=== PATIENT | male | born 1985 | race Caucasian/White ===

== ENCOUNTER 2021-09-12 21:18 | Emergency (ER) | payer MEDICAID, SELFPAY ==
[2021-09-12 21:22] VITALS: BP 140/89; PULSE 87; RESP 18; TEMP 36.9; O2SAT 99
--- NOTE | 2021-09-12 21:22 | ED.GENADULT ---
HPI - General Adult General Chief complaint: Unspecified Stated complaint: heat exhaustion History of Present Illness HPI narrative: 36-year-old male presents the emergency room for evaluation of heat exhaustion . Patient states that he has been outside all day as well as yesterday and is feeling fatigued. Patient denies seizure, altered consciousness, any delirium. Denies any confusion. Denies extreme weakness, any coordination problems lightheadedness, profuse sweating, headache, abdominal pain, vomiting or diarrhea, or any muscle cramps. Denies fever. Patient also states that he is presently homeless. Related Data Home Medications Medication Instructions Recorded Confirmed No Home Medications 09/12/21 09/12/21 Allergies Allergy/AdvReac Type Severity Reaction Status Date / Time No Known Allergies Allergy Verified 09/12/21 21:27 Review of Systems Review of Systems: CONSTITUTIONAL: Denies fever, chills, or sweats. EYES: Denies visual changes, redness, or discharge. ENT: Denies rhinorrhea, congestion, sore throat, or otalgia. CARDIOVASCULAR: Denies chest pain, palpitations, or edema. RESPIRATORY: Denies cough or dyspnea. GASTROINTESTINAL: Reports nausea GENITOURINARY: Denies dysuria or hematuria. SKIN: Denies rash or itching. MUSCULOSKELETAL: Denies back pain, joint pain, or myalgia. NEUROLOGIC: Reports headache and weakness PSYCHIATRIC: Denies anxiety or depression. Exam Narrative: GENERAL: Well-appearing, well-nourished, and in no acute distress. HEAD: Normocephalic, atraumatic. EYES: PERRLA and EOMI. ENT: Nares clear, no rhinorrhea or epistaxis. Mucous membranes moist. Oropharynx without tonsillar hypertrophy exudate or other lesions. Bilateral TMs pearly mota nonbulging NECK: Supple. No adenopathy or masses. CHEST: Clear to auscultation. No respiratory distress. No wheezes rales or rhonchi HEART: Regular rate and rhythm. No murmur heard. Normal peripheral pulses. ABDOMEN: Soft, nontender, nondistended, normal active bowel sounds. EXTREMITIES: Normal range of motion. No edema. SKIN: Warm, dry, no rash. NEURO: No focal deficits. Alert and oriented x3. PSYCH: Normal mood and affect. Medical Decision Making MDM Narrative Medical decision making narrative: 36-year-old male presented to the emergency room complaints of nausea and suspicion over heat exhaustion. No signs of DKA in his labs. CMP is normal electrolytes and no signs of dehydration causing prerenal RIVAS. CK slightly elevated, likely due to his being exposed to the outside for a lengthy period of time. CBC was unremarkable. Patient denies any chest pain, unremarkable EKG so there is low suspicion for acute coronary syndrome. Based on history and exam, work-up there is a low suspicion for pancreatitis, appendicitis, or any biliary pathology. Patient was given IV fluids and IV Zofran. Patient tolerated p.o. here. Patient will be discharged home. Lab Data Lab results reviewed: Yes I reviewed the patient's lab results. ECG Data EKG #1: ECG completion date: 09/12/21 ECG completion time: 21:42 EKG Interpretation: normal rate, sinus rhythm, no ectopy, normal QRS and normal QT Discharge Plan Discharge Clinical Impression: Heat exhaustion Patient Disposition: Home, Self-Care Condition: Stable Instructions: Antibiotic Form Additional Instructions: Maintain adequate hydration. Attempted staying well shaded areas. Return to emergency room for worsening condition. Prescriptions: No Action No Home Medications Follow-up/Referrals: PHYSICIAN,SHOE HANDLER [Primary Care Provider] - Time of Disposition: 23:02
--- NOTE | 2021-09-12 21:35 | ECG_ITS ---
Measurements Intervals [place] Rate: 85 P: 57 AL: 142 QRS: 63 QRSD: 100 T: 40 QT: 358 QTc: 426 Interpretive Statements SINUS RHYTHM ST-ELEVATION, LIKELY EARLY REPOLARIZATION VERSUS PERICARDITIS ABNORMAL ECG NO PREVIOUS ECG AVAILABLE FOR COMPARISON Electronically Signed On 09-13-2021 11:04:06 CDT by Alexandre Meléndez M.D.
[2021-09-12 21:50] LABS: Basophils Percent Auto 0.5 % (0.2-1.2); Eosinophils Absolute Auto 0.1 K/mm3 (0-0.3); Eosinophils Percent Auto 0.7 % (0-4.4); Hematocrit 41.4 % (42.0-52.0); Hemoglobin 13.7 g/dL (14.0-18.0); Immature Granulocyte Absolute 0.03 K/mm3 (0.00-0.031); Immature Granulocyte Percent A 0.4 % (0-0.5); Lymphocytes Absolute Auto 1.32 K/mm3 (0.9-3.2); Lymphocytes Percent Auto 16.2 % (18.3-44.2); Mean Corpuscular HGB Conc 33.1 g/dl (32-36); Mean Corpuscular Hemoglobin 30.6 pg (26-34); Mean Corpuscular Volume 92.6 fl (80-100); Mean Platelet Volume 10.2 fl (7.4-10.4); Monocytes Absolute Auto 0.7 K/mm3 (0.1-0.6); Monocytes Percent Auto 8.9 % (2.6-8.5); Neutrophils Percent Auto 73.3 % (45.5-73.1); Platelet Count Result 248 k/mm3 (150-375); Red Blood Count 4.47 M/mm3 (4.6-6.20); Red Cell Distribution Width 14.3 % (11.5-14.5); White Blood Count 8.2 K/mm3 (4.5-10.0)
[2021-09-12] MEDS: SODIUM CHLORIDE 0.9% IV 1,000 ML 999 ML IV CONT ×2 (21:50→22:37)
[2021-09-12] MEDS: ONDANSETRON INJ 4 MG/2 ML VIAL IV PUSH (21:50)
[2021-09-12 22:00] LABS: Creatine Kinase 194 U/L (55-170)
[2021-09-12 22:02] LABS: Alanine Aminotransferase 25 U/L (6-50); Albumin Level 4.2 g/dL (3.5-5.1); Alkaline Phosphatase 91 U/L (38-126); Anion Gap 5 mmol/L (8-16); Aspartate Amino Transferase 24 U/L (17-59); Bilirubin,Total 0.9 mg/dL (0.2-1.3); Blood Urea Nitrogen 14 mg/dL (9-20); Calcium 9.1 mg/dL (8.4-10.2); Carbon Dioxide 29 mmol/L (22-30); Chloride 104 mmol/L (98-107); Estimated CRCL calculation 95 ml/min; Estimated Glomerular Filt Rate > 60; Ethanol < 10 mg/dL (<10); Glucose 99 mg/dL (65-110); Potassium 4.2 mmol/L (3.4-5.0); Sodium 138 mmol/L (137-145)
[2021-09-12 22:20] LABS: Appearance Urine Clear (Clear); Bilirubin Urine Negative (Negative); Blood Urine Negative (Negative); Color Urine Yellow (Yellow); Glucose Urine UA Negative (Negative); Ketones Urine Negative (Negative); Leukocyte Esterase Ur Negative LEU/UL (Negative); Nitrate Urine Negative (Negative); Protein Urine 1+ mg/dL (Negative); Specific Grav Ur 1.015 (1.001-1.035); Urobilinogen Urine 0.2 mg/dL (<2.0); pH Urine >=9.0 (5.0-9.0)
[2021-09-12 22:24] LABS: Bacteria Urine Trace /hpf; WBC Urine 0-3 /hpf
[2021-09-12 22:28] LABS: Add Urine Microscopic? YES
[2021-09-12 22:29] LABS: Amphetamine Screen Urine Negative (Negative); Barbiturate Screen Urine Negative (Negative); Benzodiazepines Screen Urine Negative (Negative); Cannabinoid Screen Urine Negative (Negative); Cocaine Screen Urine Negative (Negative); Methadone Screen Urine Negative (Negative); Opiate Screen Urine Negative (Negative); Phencyclidine Screen Urine Negative (Negative)
[2021-09-12 22:34] VITALS: BP 132/78; PULSE 74; RESP 18; O2SAT 99
[2021-09-12 23:35] VITALS: BP 127/72; PULSE 86; RESP 18; O2SAT 97
== END 2021-09-12 23:38 | disposition home or self-care (01) ==
PROVIDERS: Emergency Provider Nurse Practitioner Family
DX: T67.5XXA Heat exhaustion, unspecified, initial encounter (principal); X30.XXXA Exposure to excessive natural heat, initial encounter
CPT/HCPCS: 36415; 80053; 80307; 81001; 82550; 85025; 93005; 96361; 96374; 99284; J2405; J7030

== ENCOUNTER 2021-10-17 08:54 | Emergency (ER) | payer MEDICAID, SELFPAY ==
--- NOTE | 2021-10-17 09:02 | ED.ANXIETY ---
HPI - Anxiety General Chief Complaint: Anxiety Stated Complaint: anxiety Time Seen by Provider: 10/17/21 09:03 Source: patient, family, RN notes reviewed and old records reviewed Mode of arrival: ambulatory Limitations: no limitations History of Present Illness HPI narrative: t36 year old male presents to [facility] care with complaints of anxiety and depression and insomnia since 2014 which has become worse over the past weeks. Patient does admit also to alcohol use he reports usually daily. Patient reports that he has had some bad luck lately with financial, housing, transportation etc. He reports that he was essentially homeless for awhile. He just states that he needs to get some sleep, denies any homicidal or suicidal ideation. Mother brought him to clinic today. Patient reports that he has been on Vivitrol in past for alcohol but it didn't work. Patient reports that he has been on Zoloft and Abilify in the past too with no success. MD complaint: anxiety and other (depression and insomnia) Related Data Allergies Allergy/AdvReac Type Severity Reaction Status Date / Time No Known Allergies Allergy Verified 10/17/21 09:03 Review of Systems Review of Systems: CONSTITUTIONAL: Denies fever, chills, or sweats. EYES: Denies visual changes, redness, or discharge. ENT: Denies rhinorrhea, congestion, sore throat, or otalgia. CARDIOVASCULAR: Denies chest pain, palpitations, or edema. RESPIRATORY: Denies cough or dyspnea. GASTROINTESTINAL: Denies abdominal pain, nausea, vomiting, or diarrhea. GENITOURINARY: Denies dysuria or hematuria. SKIN: Denies rash or itching. MUSCULOSKELETAL: Denies back pain, joint pain, or myalgia. NEUROLOGIC: Denies headache, numbness, or weakness. PSYCHIATRIC: Positive for anxiety or depression. and insomnia All systems reviewed & are unremarkable except as noted in HPI and below PMFSH Past Medical History Medical History (Updated 10/18/21 @ 01:23 by Krystin Painting NP) Anxiety and depression Social History Social History (Updated 10/18/21 @ 01:24 by Krystin Painting NP) Smoking packs per day: 1 Smoking cigarettes per day: 20.0 Smoking status: Current every day smoker Alcohol intake: current Living arrangements: other Additional living arrangements comments: hotel at present time Gender identity (if verbalized by the patient): Male Comments At time of signature agree with nursing documentation of past medical surgical, social and family history, There is no pertinent family history relevant to presenting complaint. Exam Narrative: GENERAL: Well-appearing, well-nourished, and in no acute distress, well kept and clean appearance HEAD: Normocephalic, atraumatic. EYES: PERRLA and EOMI. does make eye contact ENT: Nares clear, no rhinorrhea or epistaxis. Mucous membranes moist.TM's normal with good light reflex, throat pink with no lesions or exudates. NECK: Supple. no lymphadenopathy CHEST: Clear to auscultation. No respiratory distress.SAO2 100% on room air HEART: Regular rate and rhythm. No murmur heard. Normal peripheral pulses. ABDOMEN: Soft, nontender, nondistended, normal active bowel sounds. EXTREMITIES: Normal range of motion. No edema. SKIN: Warm, dry, no rash. NEURO: No focal deficits. Alert and oriented x3. anxious Course Course Level of Care: Express Care Visit Vital Signs Vital signs: Vital Signs Temperature 37.2 C 10/17/21 09:06 Pulse Rate 83 10/17/21 09:06 Respiratory Rate 18 10/17/21 09:06 Blood Pressure 146/100 H 10/17/21 09:06 Pulse Oximetry 100 10/17/21 09:06 Temperature 37.2 C 10/17/21 09:06 Pulse Rate 83 10/17/21 09:06 Respiratory Rate 18 10/17/21 09:06 Blood Pressure 146/100 H 10/17/21 09:06 Pulse Oximetry 100 10/17/21 09:06 MDM - Anxiety MDM Narrative Medical decision making narrative: Spoke with Kami from [facility] she took his phone contact information and will call to follow up for possible interve
[2021-10-17 09:06] VITALS: BP 146/100; PULSE 83; RESP 18; TEMP 37.2; O2SAT 100
== END 2021-10-17 10:08 | disposition home or self-care (01) ==
PROVIDERS: Emergency Provider Registered Nurse
DX: F41.9 Anxiety disorder, unspecified (principal); F32.A Depression, unspecified; G47.00 Insomnia, unspecified; F17.210 Nicotine dependence, cigarettes, uncomplicated
CPT/HCPCS: 99213; G0463